=== PATIENT | female | born 1990 | race Caucasian/White ===

== ENCOUNTER 2021-12-18 10:30 | Outpatient (RCR) | payer OTHER, SELFPAY ==
[2021-12-05 11:25] VITALS: BMI 28.4
--- NOTE | 2021-12-05 12:39 | PC.ADMIT ---
Patient is a 31 year old female who was referred to PHP by her therapist d/t increase in depression and anxiety symptoms. Patient reports this time of year is difficult for her as she lost her brother in October and her Mother in 2018 both of who struggled with ETOH use. 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 She stated she has been taking on 5 different roles at work. Patient is taken a SACHIN from work to work on her mental health. 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 She reports having a difficult time saying no and takes on more than she should and that is her biggest issue creating severe anxiety where she struggles with panic attacks and GI symptoms including vomiting and diarrhea. Patient also reports OCD sxs. In addition, patient reports she has partial guardianship for her teenage niece and nephew. Patient is alert and oriented x4. Presents with depressed anxious mood. Denied SI. Patient gave verbal permission to email her a copy of her safety plan. Patient's medications reconciled with patient and patient's pharmacy. Patient reports taking medications as prescribed.
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
--- NOTE | 2021-12-07 15:36 | PC.NURSE ---
Case opened in treatment team
--- NOTE | 2021-12-11 16:05 | PC.NURSE ---
I called and spoke to pt. Discussed aftercare. She would like her PCP to continue medication management after she discharges, stating her PCP has good mental health experience and they have a good relationship. 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 Pt is planning on attending her first ACOA meeting this week.
--- NOTE | 2021-12-12 07:03 | HO.PHPPROGNO ---
Subjective Subjective Date of Service: 12/11/21 Reason For Visit: Generalized Anxiety D/o, MDD unspecified Guardianship: No Medical Problems Affecting Mental Status: No Interim History: Client reports poor sleep, continued symptoms of anxiety and dysphoric mood. Medication Compliance: Yes Side effects from medications: No Attending Groups: Yes Review of Systems Acute medical concerns: No Medical Review of Systems: unchanged Review of Systems Review of Systems Yes all other systems are reviewed and are negative Constitutional: Reports no additional constitutional complaints Mental Status Exam Mental Status Exam Narrative: Well developed, well nourished female, in NAD. No abnormal movements, no tics/tremors noted. Patient Appearance: Well Grooomed and Fatigued Patient Orientation: Person, Place, Time and Situation Level of Consciousness: Awake, Appropriate and Alert Patient Behavior: Appropriate, Cooperative and Good Eye Contact Mood Description: Depressed and Anxious Affect Description: Depressed and Anxious Patient Cognition Impaired: No Ability to Follow Directions: Excellent Speech Pattern: Clear, Appropriate and Coherent Memory Description: Intact Hallucinations: None Delusions: Not Present Thought Process: Intact, Goal Oriented and Linear Thought Content: positive for Intact, positive for Goal Oriented and positive for Linear Depressive Symptoms: Increased Anxiety, Difficulty Sleeping, Loss of Int. in Activity, Feelings of Worthlessness and Increased Fatigue Judgement: Fair Diagnostics Vital Signs (24Hr): BMI result Body Mass Index 28.4 Assessment & Plan Assessment & Plan (1) Major depressive disorder, recurrent, moderate: Status: Acute Code(s): F33.1 - Major depressive disorder, recurrent, moderate Assessment and Plan: Client continues with dysphoric mood. No thoughts of harm to self or others, no safety concern at this time. Discussed use of medication for depressive symptom management, such as an SSRI, lexapro. Education regarding medication's role in abilty to help improve both symptoms of depression and anxiety. Client states she is not interested in adding an SSRI at this time. She continues with prn hydroxyzine, and states that she prefers to remain with this medication, as it is helping with symptoms. She states that the holidays are now over, and her symptoms of both depression and anxiety tend to escalate during the holidays. Reports groups are helpful in learning and practicing healthy coping skills. Also using lavender at home, which she reports is helpful. (2) Generalized anxiety disorder: Status: Acute Code(s): F41.1 - Generalized anxiety disorder Assessment and Plan: 1. Continue with current [facility] plan of care. 2. Continue medications as ordered, no changes at this time. 3. Follow-up as per protocol. Patient educated on: diagnosis, medication risk/benefits and therapeutic strategies Informed Consent: understands Reason for contiued partial hosp. stay Substantial Risk for: inability to function and med/psych decompensation Certification I certify that partial hospital treatment is medically necessary due to the symptoms and problems resulting from the patient's mental illness and the failure to treat the patient at the partial hospital level of care would likely result in the patient requiring inpatient psychiatric care which could not be prevented at a less intensive level of care. I spent minutes with the patient and/or on the patient floor today, greater than?50% of which was spent counseling/coordinating care. Discharge Plan Discharge Attending provider: Louis Marion Primary Care Provider: Umesh Hannon Medications: No Action ondansetron HCl [Zofran] 4 mg Tablet 4 mg PO Q8H PRN (Reason: Nausea) RF: 0 hydroxyzine pamoate [Vistaril] 50 mg Capsule 50 mg PO TID PRN (Reason: Anxiety) RF: 0 meclizine 25 mg Tablet 25 mg PO TID PRN (Reason: Dizziness Or Vertigo) RF: 0 Referrals: Umesh Hannon, [facility] [Primary Care Provider] - 1 Week Telehealth Telehealth Location of provider rendering services: practice address Location of patient: address on file Patient Identification confirmed using: Name, : Yes Telehealth method: video Patient verbally consented to treatment: Yes Patient verbally consented to billing insurance company: Yes Patient informed of any privacy concerns related to visit: Yes Time spent with patient (mins): 15
--- NOTE | 2021-12-18 11:47 | PC.NURSE ---
Patient scheduled to discharge from the program today. 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 Patient stated she feels grateful to be a part of the program and would feel comfortable reaching out to [facility] if she needed us again. Patient denied SI, no safety issues. Medications reviewed with patient, patient reports Hydroxyzine changed by outside provider and is now 25 mg at HS PRN insomnia. Patient reports taking medication as prescribed.
--- NOTE | 2021-12-18 13:25 | P.PNPSP_ITS ---
Subjective Subjective Date of Service: 12/18/21 Reason For Visit: Generalized Anxiety D/o, MDD unspecified Guardianship: No Medical Problems Affecting Mental Status: No Interim History: Client reports improved sleep, reports mood as its better, hopeful . Client denies any thought of harm to self or others, reports that she is feeling safe. Reports p.r.n. Vistaril as working, has only needed it several times. Medication Compliance: Yes Side effects from medications: Yes Attending Groups: Yes Review of Systems Acute medical concerns: No Medical Review of Systems: unchanged Review of Systems Review of Systems Yes all other systems are reviewed and are negative Constitutional: Reports no additional constitutional complaints Mental Status Exam Mental Status Exam Narrative: Well developed, well nourished female, in NAD. No abnormal movements, no tics/tremors noted. Patient Appearance: Well Grooomed Patient Orientation: Person, Place, Time and Situation Level of Consciousness: Awake, Appropriate and Alert Patient Behavior: Appropriate, Cooperative and Good Eye Contact Mood Description: Calm, Appropriate and Depressed (still some depression, although much improved. ) Affect Description: Calm and Appropriate Patient Cognition Impaired: No Ability to Follow Directions: Excellent Speech Pattern: Clear, Appropriate and Coherent Memory Description: Intact Hallucinations: None Delusions: Not Present Thought Process: Intact, Goal Oriented and Linear Thought Content: positive for Intact, positive for Goal Oriented, positive for Linear and positive for Logical Judgement: Good Diagnostics Vital Signs (24Hr): BMI result Verdana 4 Body Mass Index Verdana 4 28.4 Verdana 4 Verdana 4 Assessment & Plan Assessment & Plan (1) Generalized anxiety disorder: Status: Acute Code(s): F41.1 - Generalized anxiety disorder Assessment and Plan: Client reports overall much improvement regarding symptoms of depression and anxiety. Reports that she feels ?hopeful? for future. 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 She reports that she feels she has learned adequate coping skills in this program. Discussed other types of supports such as ACOA meetings or Al-Anon. She reports she has already looked into me these meetings and plans to attend. Reports that she feels she has learn to set better boundaries for herself and engage in more self-care. Discussed possible use of SSRI in future if she feels symptoms of anxiety and depression are returning. Right now she reports positive affect with p.r.n. hydroxyzine. No refills needed. (2) Major depressive disorder, recurrent, moderate: Status: Acute Code(s): F33.1 - Major depressive disorder, recurrent, moderate Assessment and Plan: Reports improved mood. Denies any SI, HI. No safety concerns at this time. Plan 1. Client appears stable for discharge from [facility]. 2. Client to utilize community support groups as needed. 3. Client to continue with outpatient providers going forward. 4. No medication refills needed at this time. Patient educated on: diagnosis, medication risk/benefits and therapeutic strategies Informed Consent: understands Reason for contiued partial hosp. stay Substantial Risk for: stable for discharge Certification I certify that partial hospital treatment is medically necessary due to the symptoms and problems resulting from the patient's mental illness and the failure to treat the patient at the partial hospital level of care would likely result in the patient requiring inpatient psychiatric care which could not be prevented at a less intensive level of care. I spent minutes with the patient and/or on the patient floor today, greater than?50% of which was spent counseling/coordinating care. Discharge Plan Discharge Attending provider: Louis Marion Primary Care Provider: Umesh Hannon Medications: No Action ondansetron HCl [Zofran] 4 mg Tablet 4 mg PO Q8H PRN (Reason: Nausea) 0RF meclizine 25 mg Tablet 25 mg PO TID PRN (Reason: Dizziness Or Vertigo) 0RF hydroxyzine pamoate 25 mg Capsule 25 mg PO BEDTIME PRN (Reason: Insomnia) 0RF Label Comments: Patient stated her prescriber decreased Hydroxyzine to 25 mg QHS PRN insomnia. Referrals: Umesh Hannon NP [Primary Care Provider] - 1 Week Stand Alone Forms: Patient Portal Discharge page Telehealth Telehealth Location of provider rendering services: practice address Location of patient: address on file Patient Identification confirmed using: Name, : Yes Telehealth method: video Patient verbally consented to treatment: Yes Patient verbally consented to billing insurance company: Yes Patient informed of any privacy concerns related to visit: Yes Time spent with patient (mins): 20
--- NOTE | 2021-12-18 15:43 | PC.NURSE ---
I called and spoke to pt's therapist, Sunshine Strange [facility] ([phone]). I let her know of pt's successful discharge from [facility] today, and about her clinical presentation at discharge.
== END 2021-12-19 07:13 | disposition home or self-care (01) ==
LOC: HO.PHPA 10:30
PROVIDERS: PCP Nurse Practitioner Primary Care; Visit Provider Psychiatry & Neurology Psychiatry
DX: F33.1 Major depressive disorder, recurrent, moderate (principal); F41.1 Generalized anxiety disorder
CPT/HCPCS: 90791; 90853